=== PATIENT | female | born 1955 | race Caucasian/White ===

== ENCOUNTER 2017-03-22 18:45 | Inpatient (IN) | payer MEDICARE, OTHER ==
--- NOTE | ~2017-03-22 | DS ---
Discharge Summary [facility] [address] [place]. [address] NAME: SPEEDY ZHU : 53 STATUS : DIS IN PAT#: [id number] AGE: 61 ADM/REG DATE : 03/22/17 MR#: [id number] REPORT SERV DATE: 03/26/17 DICTATED BY: TIMA KENNEY DATE: 03/25/17 REPORT STATUS : Draft TRANSCRIBED BY: MODL DATE: 03/25/17 ADMISSION DATE: 03/22/2017 DISCHARGE DATE: 03/25/2017 DISCHARGE DIAGNOSES: 1. Acute diastolic congestive heart failure. 2. Microcytic anemia. 3. Type 2 diabetes. 4. Newly diagnosed hyperthyroidism. 5. Morbid obesity. CONSULTANTS: None. PROCEDURES: None. HOSPITAL COURSE: This is a 61-year-old lady, who was admitted to the hospital with acute shortness of breath and peripheral edema. For details, please refer to excellent H and P dictated by Dr. Clifford Maciel. In summary, the patient was admitted with a diagnosis of congestive heart failure and the patient was treated appropriately with IV Lasix diuresis. The patient actually tolerated the diuresis really well and even by the second day of the hospital stay, the patient reported much improvement of her symptoms of shortness of breath. The patient was evaluated with an echocardiogram, which showed a normal ejection fraction of 55%, but with moderate left ventricular diastolic dysfunction. The patient had normal right ventricular systolic function. There was no significant valvular dysfunction noted. During this hospitalization, the patient was also worked up for iron-deficiency anemia. The patient was to have fecal occult blood test; however, this was mistakenly not checked. As the patient is supposed to have a screening colonoscopy done at her age anyway, it is simply suggested the patient should have a colonoscopy as an outpatient. The patient was given iron supplementation for now. The patient will understand that she needs to have outpatient evaluation for iron-deficiency anemia. Of note, the patient has not had any overt bleeding episodes. Also during this hospitalization, the patient was noted to have a hyperthyroidism. This was confirmed with elevated free T4 and free T3 levels. The patient reports that her primary care physician is aware and the patient will need to have either thyroid ultrasound or uptake scan as an outpatient. On the fourth day of the hospital stay, the patient has successfully diuresed over 5000 mL all together. The patient really wished to be discharged home and she was stable on room air. As this is a Memorial weekend and understandably so there will not be any further inpatient procedure performed until after the holidays, I felt it was appropriate for the patient to be discharged home with close outpatient followup plans, which the patient seems to understand very well. Discharge destination is home. DISCHARGE MEDICATIONS: 1. Iron 300 mg p.o. daily as a new medication. 2. Norvasc 5 mg p.o. daily was added to her existing home regimen. Discharge Summary [address] [address] NAME: SPEEDY ZHU : 53 STATUS : DIS IN PAT#: [id number] AGE: 61 ADM/REG DATE : 03/22/17 MR#: [id number] REPORT SERV DATE: 03/26/17 DICTATED BY: TIMA KENNEY DATE: 03/25/17 REPORT STATUS : Draft TRANSCRIBED BY: SARATH DATE: 03/25/17 3. Lasix 40 mg p.o. b.i.d., which has increased from 20 mg p.o. b.i.d. Otherwise, there were no medication changes. FOLLOWUP: Please follow up with PCP in the next one to two weeks. A total of 40 minutes spent in coordinating this patient's discharge today. DICTATED BY: Tima Kenney MD Gary/SARATH Tima Kenney MD / [id number] CC: MD LENIN Sanchez LISA L
--- NOTE | ~2017-03-22 | HP ---
History And Physical [address] [place]. [address] NAME: SPEEDY ZHU : 53 STATUS : ADM IN [facility]#: [id number] AGE: 61 ADM/REG DATE : 03/22/17 MR#: [id number] REPORT SERV DATE: 03/22/17 DICTATED BY: ANOOP MEI DATE: 03/22/17 REPORT STATUS : Draft TRANSCRIBED BY: MODL DATE: 03/22/17 DATE OF ADMISSION: 03/22/2017 CHIEF COMPLAINT: A 61-year-old female presenting with volume overload, 60+ pound weight gain, and shortness of breath. HISTORY OF PRESENTING ILLNESS: The patient's history was obtained through careful interview with the patient, coupled with review of [facility] medical records. For about a month now, the patient has had increasing lower extremity edema to the point where she has difficulty walking. She describes exertional fatigue. In the last several weeks, has had shortness of breath characterized by dyspnea on exertion and an orthopnea, now having to pile up about three pillows at night. No paroxysmal nocturnal dyspnea is describes though. She has developed increasing weight with about a 60-pound weight gain over a month or more. She also feels as if her abdomen is bloated, but there is no abdominal pain. She has had intermittent chest discomfort in the middle of her chest "like trapped gas" in quality, 3/10 severity. She has chronic back pain without sciatica or radiation in her lower lumbar region 5/10 severity. She has had nausea, a few episodes of vomiting. She has been trying albuterol to help her breathing, but without any relief. No cough. REVIEW OF SYSTEMS: Otherwise, a 14-point review of systems was obtained and was negative. PAST MEDICAL HISTORY: 1. COPD/asthma. 2. Hypertension. 3. Gastroesophageal reflux disorder with duodenitis, esophageal stricture, peptic ulcer disease, seen by Dr. Susan Moyer. 4. Anxiety. 5. Diabetes, described is in good control. 6. Anemia. 7. Sanchez's palsy. 8. Pneumonia. 9. Chronic back pain with degenerative disk disease. PAST SURGICAL HISTORY: 1. Cholecystectomy. 2. Hysterectomy with oophorectomy. History And Physical [address] [address] NAME: SPEEDY ZHU DOB: [birth year] STATUS : ADM IN PAT#: [id number] AGE: 61 ADM/REG DATE : 03/22/17 MR#: [id number] REPORT SERV DATE: 03/22/17 DICTATED BY: ANOOP EMI DATE: 03/22/17 REPORT STATUS : Draft TRANSCRIBED BY: SARATH DATE: 03/22/17 ALLERGIES: MORPHINE. SOCIAL HISTORY: Has been exposed to secondhand tobacco from her ex- and parents, but has never been a smoker herself. No alcohol use. Lives in [place], [place]. Is on disability. She is a retired nurse. She is active in the [employer]ental [employer]. She has four grandchildren and she has children, who live locally. FAMILY HISTORY: Father with pancreatic cancer, stroke, congestive heart failure. Grandfather with congestive heart failure. Mother of end-stage renal disease. CURRENT MEDICATIONS: Include Xanax 1 mg p.o. t.i.d. as needed, Soma p.r.n., Catapres 0.1 mg p.o. b.i.d., Prozac 20 mg p.o. daily, Lasix 20 mg p.o. b.i.d., Neurontin 300 mg p.o. b.i.d., glipizide 10 mg p.o. b.i.d., hydrochlorothiazide 25 mg p.o. daily, Levsin p.r.n., lisinopril 40 mg p.o. daily, metoprolol 50 mg p.o. t.i.d., Singulair 10 mg p.o. daily, Percocet p.r.n., Protonix 40 mg p.o. b.i.d., Januvia 100 mg p.o. daily. PHYSICAL EXAMINATION: VITAL SIGNS: Temperature 98.4, pulse 86, blood pressure 191/120, respiratory rate 16, O2 saturation 95% on room air. GENERAL: A pleasant, cooperative female, in no distress, but very uncomfortable from volume overload and shortness of breath. HEENT: Pupils equal, round, and reactive to light. No conjunctival pallor. No scleral icterus. Nares are patent. Oropharynx is clear of obstruction. Moist mucous membranes. NECK: Trachea midline. No thyromegaly. LYMPH: No cervical lymphadenopathy. No supraclavicular lymphadenopathy. RESPIRATORY: The patient has wet rales at the base of lungs. No dullness to percussion to suggest effusion though. No rhonchi. No wheezes. The patient has a labored respiratory effort. CARDIOVASCULAR: Regular rate and rhythm. No murmurs, rubs, or gallops. The patient does have deeply pitting lower extremity edema extending all the way into the groin area. Really, she has evidence of anasarca with pitting edema of her abdominal wall as well in her pelvis area. ABDOMEN: Quite distended by examination with what may be an underlying fluid wave. No tympanic resonance on percussion. Nontender throughout though. No hepatosplenomegaly is appreciated. DERMATOLOGICAL: Warm and dry extremities. No pallor, no cyanosis. PSYCHIATRIC: Normal affect. Good mood. Alert and oriented x3. LABORATORY DATA: Brain natriuretic peptide 1320. Troponin negative. INR 1.3. Hemoccult negative. White blood cell count 7.6, hemoglobin 8.3, hematocrit 27.9, platelets 320, MCV 69.2. Sodium 144, potassium 3.6, chloride 108, bicarb 28, BUN 10, creatinine 0.65, glucose 110. STUDIES: 1. Chest x-ray by my own evaluation shows significant cardiomegaly, pulmonary edema. All these are new compared to an x-ray in 11/2012. History And Physical [address] [address] NAME: SPEEDY ZHU : 53 STATUS : ADM IN [facility]#: [id number] AGE: 61 ADM/REG DATE : 03/22/17 MR#: [id number] REPORT SERV DATE: 03/22/17 DICTATED BY: ANOOP MEI DATE: 03/22/17 REPORT STATUS : Draft TRANSCRIBED BY: MODL DATE: 03/22/17 2. EKG by my own evaluation shows sinus rhythm. No major abnormalities otherwise. ASSESSMENT AND PLAN: 1. Congestive heart failure exacerbation, new onset. Check an echocardiogram to define function. Place on IV Bumex, beta-yolette, MELVI inhibitor, nitro paste. Noted a 60- pound weight gain over about a month or more. 2. Chronic obstructive pulmonary disease/asthma. Place on Duo nebulizers. 3. Diabetes. Check hemoglobin A1c. Sliding scale insulin. 4. Microcytic anemia. Check iron studies. Negative Hemoccult of stools. KPNneka/MODL Anoop Mei M.D. / [id number] CC: MD CALLIE Sanchez
[2017-03-22 16:43] LABS: BASOPHILS 0.1 %; BASOPHILS ABSOLUTE 0.01 10/3/uL (0.0-0.16); EOSINOPHILS 2.1 %; EOSINOPHILS ABSOLUTE 0.16 10/3/uL (0.0-0.53); IMMATURE GRANULOCYTES 0.1 %; IMMATURE GRANULOCYTES ABSOLUTE 0.01 10/3/uL (0.0-0.11); LYMPHOCYTES ABSOLUTE 1.45 10/3/uL (0.67-4.30); MEAN PLATELET VOLUME 9.5 fL (9.2-13.0); MONOCYTES 13.8 %; MONOCYTES ABSOLUTE 1.05 10/3/uL (0.21-1.20); NEUTROPHILS 64.9 %; NEUTROPHILS ABSOLUTE 4.94 10/3/uL (2.02-8.40); PLATELET COUNT 320 10/3/uL (150-400); WHITE BLOOD CELLS 7.6 10/3/uL (4.5-10.5)
[2017-03-22 16:46] LABS: HEMATOCRIT 27.9 % (36.0-48.0); HEMOGLOBIN 8.3 g/dL (12.0-16.0); MANUAL DIFF NO %; MEAN CORPUS HGB CONC 29.7 g/dL (32.0-36.0); MEAN CORPUSCULAR HEMOGLOB 20.6 pg (26.0-34.0); MEAN CORPUSCULAR VOLUME 69.2 fL (80-100); RED CELL COUNT 4.03 10/6/uL (4.0-5.6)
[2017-03-22 16:51] LABS: INTERNATIONAL NORMAL RATI 1.3 UNITS (-); PARTIAL THROMBO TIME 37.1 SEC (22.5-37.2); PROTIME (NOT ORD) 16.2 SEC (12.0-14.5)
[2017-03-22 17:02] LABS: BUN (BLOOD UREA NITROGEN) 10 MG/DL (6-23); CALCIUM, SERUM 8.9 MG/DL (8.5-10.4); CHEST PAIN PROFILE TAT 0 Hrs 23 Mins; CHLORIDE, SERUM 108 MMOL/L (96-112); CO2 (CARBON DIOXIDE) 28 MMOL/L (24-34); CREATININE 0.65 MG/DL (0.55-1.02); GFR AFRICAN AMERICAN 110 ML/MIN (>=60); GFR NON AFRICAN AMERICAN 95 ML/MIN (>=60); GLUCOSE, SERUM 110 MG/DL (60-99); POTASSIUM, SERUM 3.6 MMOL/L (3.5-5.3); SODIUM, SERUM 144 MMOL/L (135-148); TROPONIN I <0.02 NG/ML (<0.05)
[2017-03-22 17:07] LABS: ANISOCYTOSIS 1+ (5-10/OIF) (0-5/OIF)
[2017-03-22 17:08] LABS: ELLIPTOCYTES 1+ (3-10/OIF) (0-2/OIF); PLATELET ESTIMATE ADQ (ADEQUATE); TEARDROP SHAPED RBCS OCC (0-2/OIF)
[~2017-03-22 18:45] MED LIST: FIORICET OR; HYDROCHLOROT25 MG PO; LEVSINTAB PO; LISINOPRIL40 MG PO; LOP50 PO; LORTAB 5 PO; PROTONIX PO; TRICOR145 PO; XANAX1 MG PO; ZYRTEC ALLGY10 MG PO
[2017-03-22] MEDS ORDERED: LOP50 PO (18:50)
[2017-03-22] MEDS ORDERED: SOMATAB PO (18:50)
[2017-03-22] MEDS ORDERED: GLUCOTRO10 PO (18:51)
[2017-03-22] MEDS ORDERED: PROZAC PO (18:51)
[2017-03-22] MEDS ORDERED: LISINOPRIL40 MG PO (18:51)
[2017-03-22] MEDS ORDERED: CAT1 PO (18:51)
[2017-03-22] MEDS ORDERED: XANAX1 MG PO (18:52)
[2017-03-22] MEDS ORDERED: SINGULAIR1 PO (18:52)
[2017-03-22] MEDS ORDERED: LEVSINTAB PO (18:52)
[2017-03-22] MEDS ORDERED: PERCOCET 10/3251 TAB PO (18:52)
[2017-03-22] MEDS ORDERED: PROTONIX PO (18:52)
[2017-03-22] MEDS ORDERED: JANUVIA100 MG PO (18:53)
[2017-03-22] MEDS ORDERED: L40 PO (18:53)
[2017-03-22] MEDS ORDERED: HYDROCHLOROT25 MG PO (18:53)
[2017-03-22] MEDS ORDERED: NEUR300 PO (18:53)
[2017-03-23 05:59] LABS: HEMATOCRIT 28.4 % (36.0-48.0); HEMOGLOBIN 8.2 g/dL (12.0-16.0); MEAN CORPUS HGB CONC 28.9 g/dL (32.0-36.0); MEAN CORPUSCULAR HEMOGLOB 20.3 pg (26.0-34.0); MEAN CORPUSCULAR VOLUME 70.3 fL (80-100); MEAN PLATELET VOLUME 9.6 fL (9.2-13.0); PLATELET COUNT 312 10/3/uL (150-400); RBC DISTRIBUTION WIDTH 19.2 % (12.0-16.0); RED CELL COUNT 4.04 10/6/uL (4.0-5.6); WHITE BLOOD CELLS 8.1 10/3/uL (4.5-10.5)
[2017-03-23 06:04] LABS: MANUAL DIFF YES %
[2017-03-23 06:05] LABS: INTERNATIONAL NORMAL RATI 1.4 UNITS (-); PROTIME (NOT ORD) 16.8 SEC (12.0-14.5)
[2017-03-23 06:06] LABS: PARTIAL THROMBO TIME 43.9 SEC (22.5-37.2)
[2017-03-23 06:24] LABS: B NATRIURETIC PEPTIDE (BNP) 1175.8 PG/ML (< 100.0); ELLIPTOCYTES 1+ (3-10/OIF) (0-2/OIF); PLATELET ESTIMATE ADQ (ADEQUATE)
[2017-03-23 06:25] LABS: TEARDROP SHAPED RBCS OCC (0-2/OIF)
[2017-03-23 06:27] LABS: % IRON SAT 4 % (20-50); A/G RATIO 1.1 (0.7-1.9); ALBUMIN 3.3 G/DL (3.5-5.0); ALKALINE PHOSPHATASE 156 U/L (45-117); BUN (BLOOD UREA NITROGEN) 11 MG/DL (6-23); CHLORIDE, SERUM 109 MMOL/L (96-112); CK-MB 0.8 NG/ML; CO2 (CARBON DIOXIDE) 29 MMOL/L (24-34); CPK 27 U/L (0-200); CREATININE 0.62 MG/DL (0.55-1.02); FERRITIN 14 NG/ML (8-252); GFR AFRICAN AMERICAN 112 ML/MIN (>=60); GFR NON AFRICAN AMERICAN 97 ML/MIN (>=60); GLOBULIN 3.1 G/DL (2.5-4.1); GLUCOSE, SERUM 94 MG/DL (60-99); IRON BINDING CAPACITY 368 MCG/DL (225-410); IRON, SERUM 14 MCG/DL (35-150); SGOT(AST) 18 U/L (5-40); SGPT(ALT) 12 U/L (5-65); SODIUM, SERUM 143 MMOL/L (135-148); TOTAL BILIRUBIN 0.7 MG/DL (0-1.2); TOTAL PROTEIN 6.4 G/DL (6.0-8.5); TROPONIN I <0.02 NG/ML (<0.05); ULTRASENSITIVE TSH < 0.005 MCIU/ML (0.358-3.740)
[2017-03-23 10:02] LABS: GLYCOHEMOGLOBIN (HbA1c) 5.7 % (4.7-6.1)
[2017-03-24 06:56] LABS: BASOPHILS 0.1 %; BASOPHILS ABSOLUTE 0.01 10/3/uL (0.0-0.16); EOSINOPHILS 3.9 %; EOSINOPHILS ABSOLUTE 0.31 10/3/uL (0.0-0.53); HEMATOCRIT 26.1 % (36.0-48.0); HEMOGLOBIN 7.7 g/dL (12.0-16.0); IMMATURE GRANULOCYTES 0.3 %; IMMATURE GRANULOCYTES ABSOLUTE 0.02 10/3/uL (0.0-0.11); LYMPHOCYTES 24.5 %; LYMPHOCYTES ABSOLUTE 1.94 10/3/uL (0.67-4.30); MEAN CORPUS HGB CONC 29.5 g/dL (32.0-36.0); MEAN CORPUSCULAR HEMOGLOB 20.6 pg (26.0-34.0); MEAN PLATELET VOLUME 9.6 fL (9.2-13.0); MONOCYTES 14.9 %; MONOCYTES ABSOLUTE 1.18 10/3/uL (0.21-1.20); NEUTROPHILS 56.3 %; NEUTROPHILS ABSOLUTE 4.46 10/3/uL (2.02-8.40); PLATELET COUNT 288 10/3/uL (150-400); RBC DISTRIBUTION WIDTH 19.2 % (12.0-16.0); RED CELL COUNT 3.73 10/6/uL (4.0-5.6); WHITE BLOOD CELLS 7.9 10/3/uL (4.5-10.5)
[2017-03-24 07:05] LABS: MANUAL DIFF NO %
[2017-03-24 07:12] LABS: BUN (BLOOD UREA NITROGEN) 12 MG/DL (6-23); CALCIUM, SERUM 8.7 MG/DL (8.5-10.4); CHLORIDE, SERUM 106 MMOL/L (96-112); CO2 (CARBON DIOXIDE) 30 MMOL/L (24-34); CREATININE 0.64 MG/DL (0.55-1.02); FREE T4 2.69 NG/DL (0.76-1.46); GFR AFRICAN AMERICAN 111 ML/MIN (>=60); GFR NON AFRICAN AMERICAN 96 ML/MIN (>=60); GLUCOSE, SERUM 94 MG/DL (60-99); POTASSIUM, SERUM 3.3 MMOL/L (3.5-5.3); SODIUM, SERUM 142 MMOL/L (135-148)
[2017-03-24 07:42] LABS: ANISOCYTOSIS 1+ (5-10/OIF) (0-5/OIF); PLATELET ESTIMATE ADQ (ADEQUATE)
[2017-03-25 05:38] LABS: BASOPHILS 0.2 %; BASOPHILS ABSOLUTE 0.02 10/3/uL (0.0-0.16); EOSINOPHILS 2.9 %; EOSINOPHILS ABSOLUTE 0.25 10/3/uL (0.0-0.53); HEMATOCRIT 26.6 % (36.0-48.0); HEMOGLOBIN 7.8 g/dL (12.0-16.0); IMMATURE GRANULOCYTES 0.2 %; IMMATURE GRANULOCYTES ABSOLUTE 0.02 10/3/uL (0.0-0.11); LYMPHOCYTES 18.9 %; LYMPHOCYTES ABSOLUTE 1.62 10/3/uL (0.67-4.30); MANUAL DIFF NO %; MEAN CORPUS HGB CONC 29.3 g/dL (32.0-36.0); MEAN CORPUSCULAR HEMOGLOB 20.5 pg (26.0-34.0); MEAN PLATELET VOLUME 9.5 fL (9.2-13.0); MONOCYTES 18.8 %; MONOCYTES ABSOLUTE 1.61 10/3/uL (0.21-1.20); NEUTROPHILS ABSOLUTE 5.03 10/3/uL (2.02-8.40); PLATELET COUNT 289 10/3/uL (150-400); RBC DISTRIBUTION WIDTH 19.3 % (12.0-16.0); WHITE BLOOD CELLS 8.6 10/3/uL (4.5-10.5)
[2017-03-25 06:01] LABS: BUN (BLOOD UREA NITROGEN) 10 MG/DL (6-23); CALCIUM, SERUM 8.9 MG/DL (8.5-10.4); CHLORIDE, SERUM 104 MMOL/L (96-112); CO2 (CARBON DIOXIDE) 31 MMOL/L (24-34); GFR AFRICAN AMERICAN 113 ML/MIN (>=60); GFR NON AFRICAN AMERICAN 98 ML/MIN (>=60); GLUCOSE, SERUM 106 MG/DL (60-99); POTASSIUM, SERUM 3.4 MMOL/L (3.5-5.3); SODIUM, SERUM 142 MMOL/L (135-148)
[2017-03-25 06:24] LABS: ANISOCYTOSIS 1+ (5-10/OIF) (0-5/OIF); OVALOCYTES 1+ (3-10/OIF) (0-2/OIF); PLATELET ESTIMATE ADQ (ADEQUATE); POLYCHROMASIA 1+ (2-5/OIF) (0-1/OIF)
[2017-03-25] MEDS ORDERED: FESO4 PO (10:34)
[2017-03-25] MEDS ORDERED: NORV5 PO (10:34)
[2017-06-05] MEDS ORDERED: SSS TONIC PO (09:27)
[2017-06-05] MEDS ORDERED: METHIMAZOLE10 MG PO (09:33)
[2017-06-05] MEDS ORDERED: P20 PO (09:33)
[2017-06-05] MEDS ORDERED: KLOR-CON M2020 MEQ PO (09:34)
== END 2017-03-25 11:53 | disposition home or self-care (01) | DRG 292 ==
LOC: ER 18:45 → 6NO 18:52
PROVIDERS: Emergency Medicine; Hospitalist; Internal Medicine
DX: I11.0 Hypertensive heart disease with heart failure (principal); Z68.42 Body mass index [BMI] 45.0-49.9, adult; K22.2 Esophageal obstruction; K27.9 Peptic ulcer, site unspecified, unspecified as acute or chronic, without hemorrhage or perforation; E66.01 Morbid (severe) obesity due to excess calories; D50.9 Iron deficiency anemia, unspecified; E11.9 Type 2 diabetes mellitus without complications; I50.33 Acute on chronic diastolic (congestive) heart failure; E05.90 Thyrotoxicosis, unspecified without thyrotoxic crisis or storm; J44.9 Chronic obstructive pulmonary disease, unspecified; K21.9 Gastro-esophageal reflux disease without esophagitis; K29.80 Duodenitis without bleeding; F41.9 Anxiety disorder, unspecified; M54.9 Dorsalgia, unspecified; Z87.01 Personal history of pneumonia (recurrent); Z90.49 Acquired absence of other specified parts of digestive tract; Z90.710 Acquired absence of both cervix and uterus; Z88.5 Allergy status to narcotic agent
CPT/HCPCS: 36415; 71010; 71020; 80048; 80053; 82550; 82553; 82728; 82962; 83036; 83540; 83550; 83735; 83880; 84439; 84443; 84480; 84481; 84484; 85025; 85610; 85730; 86850; 86900; 86901; 93005; 94640; 96374; 99285; A9270-GY; C8929; J0360; J2405; Q9957

== ENCOUNTER 2017-04-03 23:50 | Emergency (ER) | payer MEDICARE, OTHER ==
[2017-04-03 23:14] LABS: BASOPHILS 0.1 %; BASOPHILS ABSOLUTE 0.01 10/3/uL (0.0-0.16); EOSINOPHILS 2.9 %; EOSINOPHILS ABSOLUTE 0.23 10/3/uL (0.0-0.53); ER CBC TAT 0 Hrs 03 Mins; HEMOGLOBIN 8.9 g/dL (12.0-16.0); IMMATURE GRANULOCYTES 0.1 %; IMMATURE GRANULOCYTES ABSOLUTE 0.01 10/3/uL (0.0-0.11); LYMPHOCYTES 19.1 %; LYMPHOCYTES ABSOLUTE 1.49 10/3/uL (0.67-4.30); MEAN CORPUS HGB CONC 29.9 g/dL (32.0-36.0); MEAN CORPUSCULAR HEMOGLOB 20.6 pg (26.0-34.0); MEAN CORPUSCULAR VOLUME 69.1 fL (80-100); MEAN PLATELET VOLUME 9.3 fL (9.2-13.0); MONOCYTES 10.5 %; MONOCYTES ABSOLUTE 0.82 10/3/uL (0.21-1.20); NEUTROPHILS 67.3 %; NEUTROPHILS ABSOLUTE 5.26 10/3/uL (2.02-8.40); PLATELET COUNT 338 10/3/uL (150-400); RBC DISTRIBUTION WIDTH 19.9 % (12.0-16.0); RED CELL COUNT 4.31 10/6/uL (4.0-5.6); WHITE BLOOD CELLS 7.8 10/3/uL (4.5-10.5)
[2017-04-03 23:17] LABS: HEMATOCRIT 29.8 % (36.0-48.0); MANUAL DIFF NO %
[2017-04-03 23:31] LABS: A/G RATIO 1.2 (0.7-1.9); ALBUMIN 3.5 G/DL (3.5-5.0); ALKALINE PHOSPHATASE 156 U/L (45-117); BUN (BLOOD UREA NITROGEN) 9 MG/DL (6-23); CALCIUM, SERUM 8.8 MG/DL (8.5-10.4); CHLORIDE, SERUM 105 MMOL/L (96-112); CO2 (CARBON DIOXIDE) 30 MMOL/L (24-34); CREATININE 0.52 MG/DL (0.55-1.02); GFR AFRICAN AMERICAN 119 ML/MIN (>=60); GFR NON AFRICAN AMERICAN 102 ML/MIN (>=60); POTASSIUM, SERUM 3.4 MMOL/L (3.5-5.3); SGOT(AST) 25 U/L (5-40); SGPT(ALT) 15 U/L (5-65); SODIUM, SERUM 142 MMOL/L (135-148); TOTAL BILIRUBIN 0.6 MG/DL (0-1.2); TOTAL PROTEIN 6.5 G/DL (6.0-8.5)
[2017-04-03 23:32] LABS: GLUCOSE, SERUM 79 MG/DL (60-99)
[2017-04-03 23:34] LABS: ANISOCYTOSIS 1+ (5-10/OIF) (0-5/OIF); HYPOCHROMIA 3+ (>30/OIF) (0-2/OIF); PLATELET ESTIMATE ADQ (ADEQUATE)
[2017-04-03 23:35] LABS: ELLIPTOCYTES 1+ (3-10/OIF) (0-2/OIF)
[2017-04-03 23:39] LABS: ASCORBIC ACID (UR NOT ORDER) NEG (NEG); BILIRUBIN, URINE NEGATIVE (NEG); ER URINALYSIS TAT 0 Hrs 00 Mins; KETONE, URINE TRACE MG/DL (NEG); LEUKOCYTE ESTERASE(NOT OR NEG (NEG); NITRITE (URINE) NEG (NEG); WBC (NOT ORDERED) (RFLEX) 2 (0-5)
[~2017-04-03 23:50] MED LIST changes: +CAT1 PO; +FESO4 PO; +GLUCOTRO10 PO; +JANUVIA100 MG PO; +L40 PO; +NEUR300 PO; +NORV5 PO; +PERCOCET 10/3251 TAB PO; +PROZAC PO; +SINGULAIR1 PO; +SOMATAB PO
[2017-06-05] MEDS ORDERED: SSS TONIC PO (09:27)
[2017-06-05] MEDS ORDERED: P20 PO (09:33)
[2017-06-05] MEDS ORDERED: METHIMAZOLE10 MG PO (09:33)
[2017-06-05] MEDS ORDERED: KLOR-CON M2020 MEQ PO (09:34)
== END 2017-04-04 02:22 | disposition home or self-care (01) ==
LOC: ER 23:50
PROVIDERS: Hospitalist
DX: R19.7 Diarrhea, unspecified (principal); J44.9 Chronic obstructive pulmonary disease, unspecified; K21.9 Gastro-esophageal reflux disease without esophagitis; I11.0 Hypertensive heart disease with heart failure; I50.9 Heart failure, unspecified; F41.9 Anxiety disorder, unspecified; E11.9 Type 2 diabetes mellitus without complications; D64.9 Anemia, unspecified; Z87.01 Personal history of pneumonia (recurrent); Z88.5 Allergy status to narcotic agent; Z79.891 Long term (current) use of opiate analgesic; Z79.899 Other long term (current) drug therapy
CPT/HCPCS: 80053; 81001; 83690; 85025; 87045; 87046; 87046-59; 87328; 87329; 87493; 87493-59; 87899; 87899-59; 89055; 99284

== ENCOUNTER 2017-04-13 18:16 | Inpatient (IN) | payer MEDICARE ==
--- NOTE | ~2017-04-13 | EGD ---
EGD REPORT [facility] [address] [address] NAME: ERICKA ROCHA : 53 STATUS : ADM IN PAT#: [id number] AGE: 61 ADM/REG DATE : 04/14/17 MR#: [id number] REPORT SERV DATE: 04/16/17 DICTATED BY: JUDD ALMEIDA DATE: 04/16/17 REPORT STATUS : Draft [facility]ANSCRIBED BY: [facility] DATE: 04/16/17 Endoscopy Center Patient Name: Ericka Rocha Date of : 1955 Attending MD: JUDD ALMEIDA MD Procedure Date No Time: 04/16/2017 Procedure: Upper GI endoscopy Indications: For therapy of duodenal stenosis Medicines: Monitored Anesthesia Care Complications: No immediate complications. Estimated blood loss: Minimal. Procedure: After obtaining informed consent, the endoscope was passed under direct vision. Throughout the procedure, the patient's blood pressure, pulse, and oxygen saturations were monitored continuously. The GIF [id number] was introduced through the mouth, and advanced to the duodenal bulb. The upper GI endoscopy was accomplished without difficulty. The patient tolerated the procedure well. Findings: The examined esophagus was normal. One non-bleeding cratered gastric ulcer with no stigmata of bleeding was found at the pylorus. The lesion was 8 mm in largest dimension. An acquired benign-appearing, intrinsic severe stenosis was found in the first part of the duodenum and was non-traversed. A balloon catheter was used to pass a wire through the stenosis and into the distal small bowel. Contrast was injected and showed a short stenosis without any additional areas of narrowing beyond the noted stenosis, A TTS dilator was passed through the scope. Dilation with a 6-7-8 mm pyloric balloon dilator was performed under fluoroscopic guidance. Estimated blood loss was minimal. Impression: - Gastric ulcer with clean base. - Acquired duodenal stenosis. Dilated to 8 mm. Recommendation: - Return patient to [facility] for [facility] care. - NPO today. - Liquid diet x 4-6 weeks - Repeat dilation in 4-6 weeks until dilated to 10-12 mm Procedure Code(s): --- Professional --- 78093, Esophagogastroduodenoscopy, flexible, transoral; with dilation of gastric/duodenal stricture(s) (eg, balloon, bougie) EGD REPORT [facility] [address] [place] [place]. [address] NAME: ERICKA ROCHA : 53 STATUS : ADM IN [facility]#: [id number] AGE: 61 ADM/REG DATE : 04/14/17 MR#: [id number] REPORT SERV DATE: 04/16/17 DICTATED BY: JUDD ALMEIDA DATE: 04/16/17 REPORT STATUS : Draft TRANSCRIBED BY: [employer] DATE: 04/16/17 Diagnosis Code(s): --- Professional --- K25.9, Gastric ulcer, unspecified as acute or chronic, without hemorrhage or perforation K31.5, Obstruction of duodenum CPT copyright 2013 [employer]. All rights reserved. The codes documented in this report are preliminary and upon configuration developer review may be revised to meet current compliance requirements. Judd Almeida MD JUDD ALMEIDA MD 04/16/2017 9:22 AM This report has been signed electronically. Number of Addenda: 0 Note Initiated On: 04/16/2017 7:46 AM Scope Withdrawal Time 0 hours 0 minutes 0 seconds [id number] [place] [address]
--- NOTE | ~2017-04-13 | HP ---
History And Physical [facility] [address] [place]. [address] NAME: SPEEDY ROCHA : 53 STATUS : ADM IN [facility]#: [id number] AGE: 61 ADM/REG DATE : 04/13/17 MR#: [id number] REPORT SERV DATE: 04/14/17 DICTATED BY: SUREKHA NORTON DATE: 04/13/17 REPORT STATUS : Draft TRANSCRIBED BY: MODNneka DATE: 04/13/17 DATE OF ADMISSION: 04/13/2017 POINT OF ENTRY: [facility] Emergency Department. PRIMARY RELIGIOUS LEADER: Susan Moyer M.D. CHIEF COMPLAINT: Nausea, vomiting, and diarrhea. HISTORY OF PRESENT ILLNESS: Ms. Rocha is a 61-year-old female with a history of non- insulin-dependent diabetes mellitus type 2, hypertension, chronic diastolic congestive heart failure, iron deficiency anemia, history of peptic ulcer disease, and new diagnosis of hyperthyroidism, who presents to the emergency department today with report of a few week history of nausea and vomiting. The patient states that in the past few weeks she has had troubles with nausea and vomiting, primarily occurs after she eats solid food. She states that she does not eat. She does not have any nausea or vomiting. She is able to tolerate liquids and pills without significant nausea or vomiting. She states that she continues to have bowel movements, has mainly been diarrhea. She has called Dr. Moyer to tell about the symptoms. She was prescribed Lomotil and that actually caused some constipation. Last bowel movement was yesterday. She denies any associated abdominal pain with her GI symptoms. The patient was recently admitted to the Hospitalist Service in February of this year for acute diastolic congestive heart failure. At that time, she was successfully diuresed and she states the fluid has been doing well since discharge with avoiding salt as well as being on her Lasix. She also was diagnosed with hyperthyroidism during that time and referred to her primary care physician for further workup and treatment. The patient states that she has an endocrinology appointment in April of this year for her hypothyroid but has not been started on any medications but notedly is on beta-yolette for her hypertension. Initial evaluation in the emergency department noted for labs otherwise unremarkable, lipase negative, troponin negative. Urinalysis unremarkable. She does have a CT scan of the abdomen and pelvis that shows some right upper quadrant and right pericolic gutter, small volume ascites, as well as the distended stomach and proximal small bowel concerning for possible small bowel obstruction. She was subsequently admitted to the Hospitalist Service for further evaluation and management. Comprehensive review of system otherwise negative unless listed in history of present illness. PREVIOUS MEDICAL HISTORY: 1. COPD or asthma. 2. Iron-deficiency anemia. 3. Gastroesophageal reflux disease and peptic ulcer disease. 4. History of acquired duodenal stenosis, status post duodenal dilatation. History And Physical [address] [address] NAME: SPEEDY ROCHA : 53 STATUS : ADM IN PAT#: [id number] AGE: 61 ADM/REG DATE : 04/13/17 MR#: [id number] REPORT SERV DATE: 04/14/17 DICTATED BY: SUREKHA NORTON DATE: 04/13/17 REPORT STATUS : Draft TRANSCRIBED BY: SARATH DATE: 04/13/17 5. Hypertension. 6. Eop-ahplepy-flphefnoa diabetes mellitus type 2. 7. Anxiety. 8. Chronic lower back pain. 9. History of Sanchez's palsy. 10.Chronic diastolic congestive heart failure. 11.Hyperthyroidism. PREVIOUS SURGICAL HISTORY: Cholecystectomy and abdominal hysterectomy. ALLERGIES: MORPHINE. HOME MEDICATIONS: 1. Xanax 1 mg t.i.d. p.r.n. 2. Norvasc 5 mg daily. 3. Soma 350 mg b.i.d. p.r.n. 4. Clonidine 0.1 mg b.i.d. 5. Ferrous sulfate 325 mg daily. 6. Prozac 20 mg daily. 7. Lasix 40 mg b.i.d. 8. Gabapentin 300 mg b.i.d. 9. Glucotrol 10 mg b.i.d. 10.Hydrochlorothiazide 25 mg daily. 11.Levsin 0.125 mg t.i.d. p.r.n. 12.Lisinopril 40 mg daily. 13.Lopressor 50 mg t.i.d. 14.Singulair 10 mg daily. 15.Percocet 10/325 one tab q.i.d. 16.Protonix 40 mg b.i.d. 17.Januvia 100 mg daily. SOCIAL HISTORY: Denies any tobacco, alcohol, or illicits. FAMILY MEDICAL HISTORY: Mother with end-stage renal disease. Father with pancreatic cancer and stroke. LABS AND IMAGIN. White count 6.3, hemoglobin 9.4, hematocrit is 31.7, and platelet count is 259. 2. Sodium is 145, potassium 3.2, chloride 105, carbon dioxide 32, BUN 8, creatinine 0.42, glucose is 84, calcium is 9.1, protein is 6.7, albumin is 3.5, bilirubin is 0.9, ALT is 14, AST 29, and alkaline phosphatase is 157. 3. Lipase is 82. 4. Troponin is negative. 5. Urinalysis: Specific gravity is 1.018 with some mild protein and ketones with no evidence of any infection. 6. CT scan of the abdomen and pelvis shows a small volume ascites at the right upper quadrant and right pericolic gutter as well as the distended stomach and proximal small History And Physical [address] [address] NAME: SPEEDY ROCHA : 53 STATUS : ADM IN [facility]#: [id number] AGE: 61 ADM/REG DATE : 04/13/17 MR#: [id number] REPORT SERV DATE: 04/14/17 DICTATED BY: SUREKHA NORTON DATE: 04/13/17 REPORT STATUS : Draft TRANSCRIBED BY: SARATH DATE: 04/13/17 bowel raising a possibility of small-bowel obstruction, mild celiac, and superior mesenteric adenopathy, subcutaneous edema overlying the abdomen. PHYSICAL EXAMINATION: VITAL SIGNS: Temperature is 98.0 degrees Fahrenheit, pulse is 86, respirations 16, saturating 95% on room air, and blood pressure is 180/98. On recheck, blood pressure is now 205/80, pulse of 83. GENERAL: The patient is awake, alert, and in no acute distress. Resting comfortably in bed. She is a well-developed, well-nourished, female. HEENT: Atraumatic and normocephalic. Moist mucous membranes. Pupils are equal, round, reactive to light and accommodation. Extraocular eye movements intact. No scleral icterus. NECK: No jugular venous distention or carotid bruits. CARDIAC: Regular rate and rhythm. No murmurs or gallops. Normal S1, S2. LUNGS: Clear to auscultation bilaterally. No wheezes, rhonchi, or crackles. ABDOMEN: Obese, soft, nontender, nondistended. Hypoactive bowel sounds throughout. No rebound, guarding, or rigidity. EXTREMITIES: Warm and perfused with trace lower extremity edema. SKIN: Warm and dry. PSYCH: Affect appropriate. NEURO: Alert and oriented x3. Cranial nerves 2 through 12 grossly intact. Speech is normal. Gait not assessed. ASSESSMENT: Ms. Rocha is a 61-year-old female, presents with a few week history of nausea and vomiting primarily associated with oral intake of solid food and now found to have CT evidence of possible partial small bowel obstruction. PROBLEM LIST: 1. Possible partial small bowel obstruction versus duodenal stenosis with nausea and vomiting. 2. Hypertension. 3. Chronic diastolic congestive heart failure. 4. Hypothyroidism. 5. Hypokalemia. 6. Hjj-giuyifd-cjijztyrq diabetes mellitus type 2. 7. History of peptic ulcer disease. PLAN: 1. Nausea and vomiting concerning for possible partial small bowel obstruction versus duodenal stenosis. Given the patient's history of peptic ulcer disease and duodenal stents in 2012, I suspect this may be the etiology of her fluid distended proximal small bowel and stomach and her symptoms. Partial small bowel obstruction also is a possibility. We will make the patient nothing by mouth. Provide supportive care with antiemetics, pain control, and very gentle IV fluid hydration. She is currently refusing an NG tube for gastric decompression. We will consult Gastroenterology for assistance. Given history of duodenal stenosis and peptic ulcer disease, she likely will need a repeat EGD to further evaluate. 2. Hypertension. The patient readily admits she had not taken her medications a few days History And Physical [address] [address] NAME: SPEEDY ROCHA : 53 STATUS : ADM IN PAT#: [id number] AGE: 61 ADM/REG DATE : 04/13/17 MR#: [id number] REPORT SERV DATE: 04/14/17 DICTATED BY: SUREKHA NORTON DATE: 04/13/17 REPORT STATUS : Draft TRANSCRIBED BY: SARATH DATE: 04/13/17 as she has not been taking much in. We will get her back on clonidine here in the ER, resume all the rest of her home medications, as well as place her on IV hydralazine p.r.n. 3. Chronic diastolic congestive heart failure. The patient currently appears euvolemic at this time. Checking a chest x-ray and BNP. 4. Hyperthyroid. The patient states she has an appointment late April with Endocrinology. She currently appears to be well controlled and asymptomatic but is also on high doses of beta yolette. This is presumed for her underlying hypertension. Given this, we will again defer to outpatient workup and management by her PCP and Endocrinology. 5. Bls-pwfyffr-prwtlieen diabetes mellitus type 2. Holding oral hypoglycemics. Place on level 1 sliding scale. 6. DVT prophylaxis. Lovenox subcu. CODE STATUS: The patient wishes to be full code. JCB/MODL Surekha Norton MD / [id number] CC: MD Tiffanie Brady IIHussain Moyer M.D.
--- NOTE | ~2017-04-13 | CN ---
Consultation Report [facility] [address] [place]. [address] NAME: SPEEDY ROCHA : 53 STATUS : ADM Tamar PAT#: [id number] AGE: 61 ADM/REG DATE : 04/13/17 MR#: [id number] REPORT SERV DATE: 04/14/17 DICTATED BY: SUSAN MOYER DATE: 04/14/17 REPORT STATUS : Draft TRANSCRIBED BY: MODL DATE: 04/14/17 CONSULTATION DATE OF CONSULTATION: 04/14/2017 REASON FOR EVALUATION: Nausea, vomiting, recent diarrhea, abnormal imaging. HISTORY OF PRESENT ILLNESS: Ms. Rocha is a 61-year-old female, seen by our group approximately five years ago for an NSAID-induced duodenal ulcer, complicated by duodenal stricture. She was treated with endoscopic dilation, and PPI. She has remained off all aspirin or anti-inflammatories since that time. The patient dates her recent symptoms to a recent admission a month ago when she was admitted for acute diastolic congestive heart failure with anasarca and shortness of breath. She was diuresed and discharged. She reports new medications at that time included Norvasc and iron. She did not receive antibiotics. After discharge, she developed nausea, vomiting, and diarrhea. She was referred for Clostridium difficile testing. Although the stool toxin was negative, she was treated empirically with Flagyl. This exacerbated her nausea, vomiting, and was subsequently discontinued. Her bowel movements have become progressively more formed, and she had a normal formed stool this morning. Unfortunately, she continues to have nausea and episodic vomiting. This has been associated with a 60-pound weight loss, although she attributes some of this to her diuresis. During her recent admission as noted, she was found to have iron deficiency anemia. Testing for occult blood in the stool was planned, but was not performed. A followup colonoscopy as an outpatient was recommended. PAST MEDICAL HISTORY: 1. COPD. 2. Hypertension. 3. 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 4. Diabetes mellitus. 5. Iron deficiency anemia. 6. Hypertension. 7. Chronic back pain. 8. Hypothyroidism. 9. Diastolic dysfunction. 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 11.Status post cholecystectomy. 12.Status post appendectomy. MEDICATIONS: At home include p.r.n. acetaminophen, Xanax 1 mg t.i.d., Norvasc 5 mg daily, soma b.i.d. p.r.n., Catapres 0.1 mg b.i.d., ferrous sulfate 300 mg daily, Prozac 20 mg Consultation Report [facility] [address] [place]. [address] NAME: SPEEDY ROCHA : 53 STATUS : ADM Tamar PAT#: [id number] AGE: 61 ADM/REG DATE : 04/13/17 MR#: [id number] REPORT SERV DATE: 04/14/17 DICTATED BY: SUSAN MOYER DATE: 04/14/17 REPORT STATUS : Draft TRANSCRIBED BY: SARATH DATE: 04/14/17 daily, Lasix 40 mg b.i.d., Neurontin 300 mg b.i.d., Glucotrol 10 mg b.i.d., hydrochlorothiazide 25 mg daily, hyoscyamine 0.125 mg t.i.d., Prinivil 40 mg daily, Lopressor 50 mg t.i.d., Singulair 10 mg daily, Percocet q.i.d., Protonix 40 mg b.i.d., and Januvia 100 mg daily. ALLERGIES: MORPHINE CAUSES NAUSEA AND VOMITING. SOCIAL HISTORY: She is and accompanied by her . She does not use tobacco or alcohol. FAMILY HISTORY: Remarkable for kidney disease, pancreas cancer, and CVA. REVIEW OF SYSTEMS: Chronic murmur. PHYSICAL EXAMINATION: GENERAL: Reveals a pleasant, cooperative and vigorous lady. VITAL SIGNS: Blood pressure 173/77, temperature 97.4, and heart rate 64. SKIN: Warm and dry. HEENT: No icterus. Oropharynx: No lesions. NECK: Supple. No adenopathy. CHEST: No wheezes. There are good breath sounds bilaterally with no rales. CARDIAC: Regular rate and rhythm with 1 to 2 out of 6 systolic murmur. ABDOMEN: Mild central obesity. No distention. Bowel sounds are present and normal. There is no succussion splash and no tenderness. EXTREMITIES: Warm with nonpitting edema at the ankles. LABORATORY DATA: Sodium is 139, potassium 2.7, CO2 of 29, magnesium 1.7. Albumin 3.5, AST 29, ALT 14, alkaline phosphatase 157, total bilirubin 0.9. TSH less than 0.005. Troponin-1 of 0.02. Recent iron saturation 4%. White blood cell count 5.4, hemoglobin 8.4, MCV 68, and platelets 257,000. Her last normal hemoglobin that we have on file here is 2012 when her hemoglobin was 12. ProTime 16.8, INR 1.4, PTT 43.9. IMAGING: CT scan of the abdomen obtained yesterday was reviewed by me and the common bile duct measures 9 mm. There is atherosclerosis present. There is a small amount of ascites above the liver. There is isolated loop of small bowel which is dilated to 3.1 cm. This appears to be somewhat proximal. Stomach is likewise slightly distended as well. Some lymphadenopathy is seen in the gastrohepatic ligament. IMPRESSION: Possible partial small-bowel obstruction versus contribution from duodenal stricture. Given recent weight loss and adenopathy, worrisome for neoplasm. Given she has remained off aspirin and nonsteroidal antiinflammatory drugs, nonsteroidal antiinflammatory drug-induced lesion less likely. May represent adhesions. RECOMMENDATIONS: Consultation Report [address] [place]. [address] NAME: SPEEDY ROCHA : 53 STATUS : ADM Tamar PAT#: [id number] AGE: 61 ADM/REG DATE : 04/13/17 MR#: [id number] REPORT SERV DATE: 04/14/17 DICTATED BY: SUSAN MOYER DATE: 04/14/17 REPORT STATUS : Draft TRANSCRIBED BY: SARATH DATE: 04/14/17 1. Empiric PPI. 2. Few ice chips today, given symptomatic improvement. 3. Upper endoscopy without air tomorrow, with intubation as distal as possible. Consider using pediatric colonoscope for better access of the jejunum. This will be predicated upon ability to pass the scope. 4. If above unrevealing, and symptoms ongoing, consider surgical consultation. Thank you for asking me to participate in her management. MASSIEL/SARATH Susan Moyer M.D. / [id number] CC: MD LENIN Brady II, LISA L
--- NOTE | ~2017-04-13 | DS ---
Discharge Summary [place] [address] [facility] [place]. [address] NAME: SPEEDY ZHU : 53 STATUS : ADM IN [facility]#: [id number] AGE: 61 ADM/REG DATE : 04/14/17 MR#: [id number] REPORT SERV DATE: 04/17/17 DICTATED BY: PHILL DURHAM DATE: 04/17/17 REPORT STATUS : Draft TRANSCRIBED BY: MODL DATE: 04/17/17 ADMISSION DATE: 04/14/2017 DISCHARGE DATE: CONSULTATIONS: GI, Dr. Susan Moyer. DIAGNOSES: This is a 61-year-old female, who is going to be discharged with the final diagnoses of: 1. Duodenal stenosis, status post dilatation. 2. Gastric ulcer. 3. Diabetes. 4. Hypertension. 5. Chronic diastolic congestive heart failure. 6. History of asthma. 7. Iron deficiency anemia. 8. Hyperthyroidism. 9. Status post hypokalemia. 10.Anxiety. 11.Morbid obesity. DIAGNOSTIC EXAMS: CAT scan of the abdomen and pelvis showing ascites, the etiology of which is not obvious; mildly distended stomach and proximal small bowel, raising the possibility of small-bowel obstruction; mild celiac and superior mesenteric adenopathy; subcutaneous edema overlying the abdomen. Chest x-ray, no acute cardiopulmonary disease, cardiomegaly. HOSPITAL COURSE: Please refer to the H and P done by Dr. Hicks dated on 04/13/2017. Briefly, this is a 61-year-old female with diabetes, hypertension, iron deficiency anemia and was recently discharged with a history of diastolic congestive heart failure and a new diagnosis of hyperthyroidism. The patient was supposed to follow up with her hydropulper very soon. However, she started having some decreased p.o. intake as she cannot tolerate solid food. She started taking liquids and her medications because of this. She denies any nausea and vomiting, but started having diarrhea. The patient was given some Lomotil, but she continued to do poorly. The patient finally went to the emergency room, and she was found to have hypokalemia and CAT scan was done, which shows the above findings. The patient was then admitted. GI was consulted, where they did an EGD which shows gastritis, gastric ulcer, retained food, and duodenal stenosis. The patient's Lovenox was stopped, and a repeat EGD was done for dilatation. The patient is now one day post dilatation and is doing much better. The patient expresses wishes to go home. Pathology of the biopsy was done, it is still pending. We will be increasing her diet to soft as she is tolerating a liquid diet, and if she tolerates this and okay with GI, she will be going home. She will be on the following medications: Norvasc 5 mg a day, iron 325 mg a day, Prozac 20 mg a day, Lasix 40 mg twice a day, Neurontin 300 mg twice a day, metoprolol 50 mg three times a day, Protonix 40 mg twice a day, Catapres 0.1 mg twice a day, Soma 350 mg as needed, Levsin 0.125 mg three times a day as needed, Xanax 1 mg three times a day as needed. She will be off the Glucotrol and Januvia as she told me that she is not taking them and the latest hemoglobin A1c is 5.7, and I would defer the pain medications to the PCP. I would Discharge Summary [address] [place]. [address] NAME: SPEDEY ZHU : 53 STATUS : ADM IN PAT#: [id number] AGE: 61 ADM/REG DATE : 04/14/17 MR#: [id number] REPORT SERV DATE: 04/17/17 DICTATED BY: PHILL DURHAM DATE: 04/17/17 REPORT STATUS : Draft TRANSCRIBED BY: SARATH DATE: 04/17/17 hesitate giving this to her as she is already having some duodenal stenosis and retention of food in her stomach. The patient will follow up with the hydropulper as scheduled, follow up with Tiffanie Beach in one week, and then follow up with Dr. Susan Moyer as dictated by GI. This has been explained to her. TIME SPENT: 40 minutes. DICTATED BY: Osvaldo Farley/SARATH Phill Durham M.D. / [id number] CC: Osvaldo FarleyTiffanie L
--- NOTE | ~2017-04-13 | EGD ---
EGD REPORT [facility] [address] [address] NAME: ERICKA ROCHA : 53 STATUS : ADM Tamar PAT#: [id number] AGE: 61 ADM/REG DATE : 04/13/17 MR#: [id number] REPORT SERV DATE: 04/15/17 DICTATED BY: DATE: REPORT STATUS : Draft [facility]ED [facility]: [facility] DATE: 04/15/17 [facility] Patient Name: Ericka Rocha Date of : 1955 Attending MD: RADHA RICHARDS MD Procedure Date No Time: 04/15/2017 Procedure: Upper GI endoscopy Indications: Follow-up of acute duodenal ulcer with obstruction (history same 5 years ago due to NSAID use), Abnormal CT of the GI tract, Nausea with vomiting, Weight loss Referring MD: CALLIE PHELPS Medicines: General Anesthesia Complications: No immediate complications. Procedure: Pre-Anesthesia Assessment: - ASA Grade Assessment: III - A patient with severe systemic disease. After obtaining informed consent, the endoscope was passed under direct vision. Throughout the procedure, the patient's blood pressure, pulse, and oxygen saturations were monitored continuously. The GIF [id number] was introduced through the mouth, and advanced to the duodenal bulb. The upper GI endoscopy was accomplished without difficulty. The patient tolerated the procedure well. Findings: The examined esophagus was normal. There is no endoscopic evidence of Cobian's esophagus, areas of erosion, hiatus hernia, stenosis or ulcerations in the entire esophagus. Diffuse moderately erythematous mucosa without bleeding was found in the entire examined stomach. Biopsies were taken with a cold forceps for histology. Clear fluid was found on the greater curvature of the stomach. A small amount of food (residue) was found in the gastric antrum. One non-bleeding cratered gastric ulcer was found at the pylorus. The lesion was 6 mm in largest dimension. Biopsies were taken with a cold forceps for Helicobacter pylori testing. Food (residue) was found in the duodenal bulb. An acquired benign-appearing, intrinsic severe ulcerated stenosis was found at 2nd part of the duodenum and was non-traversed. Biopsies were taken with a cold forceps for histology. The cardia and gastric fundus were normal on retroflexion. Impression: - Normal esophagus. - Erythematous mucosa in the stomach. Biopsied. EGD REPORT [place] [address] [place]. [address] NAME: ERICKA ROCHA : 53 STATUS : ADM Tamar PAT#: [id number] AGE: 61 ADM/REG DATE : 04/13/17 MR#: [id number] REPORT SERV DATE: 04/15/17 DICTATED BY: DATE: REPORT STATUS : Draft TRANSCRIBED BY: [employer] DATE: 04/15/17 - Clear gastric fluid. - A small amount of food (residue) in the stomach. - Gastric ulcer with clean base. - Retained food in the duodenum. - Acquired severe duodenal stenosis. Biopsied. - Biopsies were taken with a cold forceps for Helicobacter pylori testing. Recommendation: - [facility]. - NPO. - Use Protonix (pantoprazole) 80 mg IV daily. - Await pathology results. - Perform an upper GI endoscopy tomorrow under fluroscopic guidance for possible dilation. Hold Lovenox for this procedure. Consider surgical consultation. Procedure Code(s): --- Professional --- 79062, Esophagogastroduodenoscopy, flexible, transoral; with biopsy, single or multiple Diagnosis Code(s): --- Professional --- K31.9, Disease of stomach and duodenum, unspecified K25.9, Gastric ulcer, unspecified as acute or chronic, without hemorrhage or perforation K31.5, Obstruction of duodenum K26.3, Acute duodenal ulcer without hemorrhage or perforation R93.3, Abnormal findings on diagnostic imaging of other parts of digestive tract R11.2, Nausea with vomiting, unspecified R63.4, Abnormal weight loss CPT copyright 2013 [employer]. All rights reserved. The codes documented in this report are preliminary and upon steel layer review may be revised to meet current compliance requirements. RADHA RICHARDS MD 04/15/2017 10:16 AM This report has been signed electronically. Number of Addenda: 0 Note Initiated On: 04/15/2017 9:41 AM Scope Withdrawal Time 0 hours 0 minutes 0 seconds EGD REPORT [place] [address] [address] NAME: ERICKA ROCHA : 53 STATUS : ADM Tamar PAT#: [id number] AGE: 61 ADM/REG DATE : 04/13/17 MR#: [id number] REPORT SERV DATE: 04/15/17 DICTATED BY: DATE: REPORT STATUS : Draft TRANSCRIBED BY: [employer] DATE: 04/15/17 [facility] [address] [address]
[2017-04-13 15:37] LABS: BASOPHILS 0.2 %; BASOPHILS ABSOLUTE 0.01 10/3/uL (0.0-0.16); EOSINOPHILS 3.2 %; HEMATOCRIT 31.7 % (36.0-48.0); HEMOGLOBIN 9.4 g/dL (12.0-16.0); IMMATURE GRANULOCYTES 0.3 %; IMMATURE GRANULOCYTES ABSOLUTE 0.02 10/3/uL (0.0-0.11); LYMPHOCYTES 14.9 %; LYMPHOCYTES ABSOLUTE 0.94 10/3/uL (0.67-4.30); MANUAL DIFF NO %; MEAN CORPUS HGB CONC 29.7 g/dL (32.0-36.0); MEAN CORPUSCULAR HEMOGLOB 20.5 pg (26.0-34.0); MEAN CORPUSCULAR VOLUME 69.2 fL (80-100); MEAN PLATELET VOLUME 9.1 fL (9.2-13.0); MONOCYTES 15.5 %; MONOCYTES ABSOLUTE 0.98 10/3/uL (0.21-1.20); NEUTROPHILS 65.9 %; NEUTROPHILS ABSOLUTE 4.17 10/3/uL (2.02-8.40); PLATELET COUNT 259 10/3/uL (150-400); RBC DISTRIBUTION WIDTH 20.6 % (12.0-16.0); RED CELL COUNT 4.58 10/6/uL (4.0-5.6); WHITE BLOOD CELLS 6.3 10/3/uL (4.5-10.5)
[2017-04-13 15:41] LABS: ASCORBIC ACID (UR NOT ORDER) NEG (NEG); BILIRUBIN, URINE NEGATIVE (NEG); ER URINALYSIS TAT 0 Hrs 10 Mins; KETONE, URINE 80 MG/DL (NEG); LEUKOCYTE ESTERASE(NOT OR NEG (NEG); NITRITE (URINE) NEG (NEG); WBC (NOT ORDERED) (RFLEX) 2 (0-5)
[2017-04-13 15:52] LABS: A/G RATIO 1.1 (0.7-1.9); ALBUMIN 3.5 G/DL (3.5-5.0); ALKALINE PHOSPHATASE 157 U/L (45-117); BUN (BLOOD UREA NITROGEN) 8 MG/DL (6-23); CALCIUM, SERUM 9.1 MG/DL (8.5-10.4); CHLORIDE, SERUM 105 MMOL/L (96-112); CO2 (CARBON DIOXIDE) 32 MMOL/L (24-34); CREATININE 0.42 MG/DL (0.55-1.02); GFR AFRICAN AMERICAN 127 ML/MIN (>=60); GFR NON AFRICAN AMERICAN 110 ML/MIN (>=60); GLOBULIN 3.2 G/DL (2.5-4.1); GLUCOSE, SERUM 84 MG/DL (60-99); POTASSIUM, SERUM 3.2 MMOL/L (3.5-5.3); SGOT(AST) 29 U/L (5-40); SGPT(ALT) 14 U/L (5-65); SODIUM, SERUM 145 MMOL/L (135-148); TOTAL BILIRUBIN 0.9 MG/DL (0-1.2); TOTAL PROTEIN 6.7 G/DL (6.0-8.5)
[2017-04-13 17:45] LABS: TROPONIN I 0.02 NG/ML (<0.05)
[2017-04-14 05:58] LABS: BUN (BLOOD UREA NITROGEN) 8 MG/DL (6-23); CALCIUM, SERUM 8.5 MG/DL (8.5-10.4); CHLORIDE, SERUM 103 MMOL/L (96-112); CO2 (CARBON DIOXIDE) 29 MMOL/L (24-34); CREATININE 0.44 MG/DL (0.55-1.02); GFR AFRICAN AMERICAN 125 ML/MIN (>=60); GFR NON AFRICAN AMERICAN 108 ML/MIN (>=60); GLUCOSE, SERUM 81 MG/DL (60-99); SODIUM, SERUM 139 MMOL/L (135-148)
[2017-04-14 06:00] LABS: BASOPHILS 0 %; EOSINOPHILS 4.1 %; EOSINOPHILS ABSOLUTE 0.22 10/3/uL (0.0-0.53); HEMOGLOBIN 8.4 g/dL (12.0-16.0); IMMATURE GRANULOCYTES 0.2 %; IMMATURE GRANULOCYTES ABSOLUTE 0.01 10/3/uL (0.0-0.11); LYMPHOCYTES 22.6 %; LYMPHOCYTES ABSOLUTE 1.21 10/3/uL (0.67-4.30); MEAN CORPUS HGB CONC 29.5 g/dL (32.0-36.0); MEAN CORPUSCULAR HEMOGLOB 20.2 pg (26.0-34.0); MEAN CORPUSCULAR VOLUME 68.5 fL (80-100); MEAN PLATELET VOLUME 9.5 fL (9.2-13.0); MONOCYTES 14.4 %; MONOCYTES ABSOLUTE 0.77 10/3/uL (0.21-1.20); NEUTROPHILS 58.7 %; NEUTROPHILS ABSOLUTE 3.15 10/3/uL (2.02-8.40); PLATELET COUNT 257 10/3/uL (150-400); RBC DISTRIBUTION WIDTH 20.7 % (12.0-16.0); RED CELL COUNT 4.16 10/6/uL (4.0-5.6); WHITE BLOOD CELLS 5.4 10/3/uL (4.5-10.5)
[2017-04-14 06:01] LABS: POTASSIUM, SERUM 2.7 MMOL/L (3.5-5.3)
[2017-04-14 06:04] LABS: HEMATOCRIT 28.5 % (36.0-48.0); MANUAL DIFF NO %
[2017-04-14 06:19] LABS: ANISOCYTOSIS 1+ (5-10/OIF) (0-5/OIF); ELLIPTOCYTES 1+ (3-10/OIF) (0-2/OIF); PLATELET ESTIMATE ADQ (ADEQUATE); TEARDROP SHAPED RBCS OCC (0-2/OIF)
[2017-04-14 19:35] LABS: POTASSIUM, SERUM 3.3 MMOL/L (3.5-5.3)
[2017-04-15 06:36] LABS: BASOPHILS 0.2 %; BASOPHILS ABSOLUTE 0.01 10/3/uL (0.0-0.16); EOSINOPHILS 1.8 %; EOSINOPHILS ABSOLUTE 0.12 10/3/uL (0.0-0.53); HEMATOCRIT 29.5 % (36.0-48.0); HEMOGLOBIN 8.8 g/dL (12.0-16.0); IMMATURE GRANULOCYTES 0.3 %; IMMATURE GRANULOCYTES ABSOLUTE 0.02 10/3/uL (0.0-0.11); LYMPHOCYTES 18.3 %; LYMPHOCYTES ABSOLUTE 1.19 10/3/uL (0.67-4.30); MEAN CORPUS HGB CONC 29.8 g/dL (32.0-36.0); MEAN CORPUSCULAR HEMOGLOB 20.5 pg (26.0-34.0); MEAN CORPUSCULAR VOLUME 68.6 fL (80-100); MEAN PLATELET VOLUME 9.2 fL (9.2-13.0); MONOCYTES 15.6 %; MONOCYTES ABSOLUTE 1.02 10/3/uL (0.21-1.20); NEUTROPHILS 63.8 %; NEUTROPHILS ABSOLUTE 4.16 10/3/uL (2.02-8.40); PLATELET COUNT 265 10/3/uL (150-400); RBC DISTRIBUTION WIDTH 21.1 % (12.0-16.0); WHITE BLOOD CELLS 6.5 10/3/uL (4.5-10.5)
[2017-04-15 06:38] LABS: MANUAL DIFF NO %
[2017-04-15 06:47] LABS: ALBUMIN 3.2 G/DL (3.5-5.0); ALKALINE PHOSPHATASE 131 U/L (45-117); BUN (BLOOD UREA NITROGEN) 10 MG/DL (6-23); CALCIUM, SERUM 8.7 MG/DL (8.5-10.4); CHLORIDE, SERUM 104 MMOL/L (96-112); CO2 (CARBON DIOXIDE) 26 MMOL/L (24-34); CREATININE 0.48 MG/DL (0.55-1.02); DIRECT BILIRUBIN 0.2 MG/DL (0.0-0.4); GFR AFRICAN AMERICAN 122 ML/MIN (>=60); GFR NON AFRICAN AMERICAN 105 ML/MIN (>=60); GLUCOSE, SERUM 77 MG/DL (60-99); INDIRECT BILIRUBIN(NOT ORDER) 0.5 MG/DL (0.1-0.9); POTASSIUM, SERUM 3.3 MMOL/L (3.5-5.3); SGOT(AST) 24 U/L (5-40); SGPT(ALT) 13 U/L (5-65); SODIUM, SERUM 139 MMOL/L (135-148); TOTAL BILIRUBIN 0.7 MG/DL (0-1.2)
[2017-04-15 07:06] LABS: INTERNATIONAL NORMAL RATI 1.5 UNITS (-); PARTIAL THROMBO TIME 41.4 SEC (22.5-37.2); PROTIME (NOT ORD) 17.8 SEC (12.0-14.5)
[2017-04-15 07:38] LABS: ANISOCYTOSIS 1+ (5-10/OIF) (0-5/OIF)
[2017-04-15 07:39] LABS: ELLIPTOCYTES 1+ (3-10/OIF) (0-2/OIF); HYPOCHROMIA 3+ (>30/OIF) (0-2/OIF); PLATELET ESTIMATE ADQ (ADEQUATE)
[2017-06-05] MEDS ORDERED: SSS TONIC PO (09:27)
[2017-06-05] MEDS ORDERED: P20 PO (09:33)
[2017-06-05] MEDS ORDERED: METHIMAZOLE10 MG PO (09:33)
[2017-06-05] MEDS ORDERED: KLOR-CON M2020 MEQ PO (09:34)
== END 2017-04-17 18:55 | disposition home or self-care (01) | DRG 381 ==
LOC: ER 18:16 → 7NO 22:20
PROVIDERS: Hospitalist; Internal Medicine; Internal Medicine Gastroenterology
PROC: 0DB68ZX Excision of Stomach, Via Natural or Artificial Opening Endoscopic, Diagnostic (ICD-10-PCS; 2017-04-15)
PROC: 0DB98ZX Excision of Duodenum, Via Natural or Artificial Opening Endoscopic, Diagnostic (ICD-10-PCS; principal; 2017-04-15 09:00)
PROC: 0D798ZZ Dilation of Duodenum, Via Natural or Artificial Opening Endoscopic (ICD-10-PCS; 2017-04-16)
DX: K31.5 Obstruction of duodenum (principal); I50.32 Chronic diastolic (congestive) heart failure; I11.0 Hypertensive heart disease with heart failure; E66.01 Morbid (severe) obesity due to excess calories; E11.9 Type 2 diabetes mellitus without complications; K25.9 Gastric ulcer, unspecified as acute or chronic, without hemorrhage or perforation; D50.9 Iron deficiency anemia, unspecified; E03.9 Hypothyroidism, unspecified; K26.3 Acute duodenal ulcer without hemorrhage or perforation; E05.90 Thyrotoxicosis, unspecified without thyrotoxic crisis or storm; E87.6 Hypokalemia; F41.9 Anxiety disorder, unspecified; K31.9 Disease of stomach and duodenum, unspecified; M54.9 Dorsalgia, unspecified; Z68.37 Body mass index [BMI] 37.0-37.9, adult; Z90.49 Acquired absence of other specified parts of digestive tract; Z88.5 Allergy status to narcotic agent; Z82.3 Family history of stroke
CPT/HCPCS: 71010; 74177; 76000; 80048; 80053; 80076; 81001; 82962; 83690; 83735; 83880; 84132; 84484; 85025; 85610; 85730; 88305; 93005; 96374; 99284; A9270-GY; C1726; C9113; J0330; J0360; J2405; J3010; J3475; Q9967